=== PATIENT | female | born 1960 | race African-American/Black ===

== ENCOUNTER 2022-07-07 16:08 | Inpatient (IN) | payer MEDICARE, OTHER ==
[~2022-07-07] VITALS: Ht 154.9 cm; Wt 96.6 kg
[2022-07-07] MEDS ORDERED: ONDANSETRON 4 MG/2 ML VIAL IV ONE (16:30)
[2022-07-07] MEDS ORDERED: HYDROMORPHONE 1 MG/1 ML DISP.SYRIN IV ONE ×3 (16:30→20:45)
[2022-07-07] MEDS ORDERED: IV NORMAL SALINE 1000 ML BAG IV ONE (16:30)
[2022-07-07 17:14] LABS: HEMATOCRIT 31.2 % (31.2-41.9); MEAN CORPUSCULAR HEMOGLOBIN 23.8 uug (24.7-32.8); MEAN CORPUSCULAR VOLUME 76.6 fL (75.5-95.3); PLATELET COUNT (AUTO) 274 K/uL (179-408)
[2022-07-07] MEDS ORDERED: ONDANSETRON 4 MG/2 ML VIAL ONE (17:16)
[2022-07-07] MEDS ORDERED: HYDROMORPHONE 1 MG/1 ML DISP.SYRIN ONE ×2 (17:16→18:55)
[2022-07-07 17:21] LABS: *BILIRUBIN,URIN NEGATIVE (NEGATIVE); *BLOOD, URINE NEGATIVE (NEGATIVE); *CLARITY,URINE TURBID (CLEAR); *COLOR,URINE YELLOW (YELLOW); *KETONES,URINE NEGATIVE (NEGATIVE); LEUKOCYTE ESTERASE ,URINE 2+ (NEGATIVE); NITRITE, URINE POSITIVE (NEGATIVE); PH,URINE 6.5 (5.0-8.0); UGLUCOSE NEGATIVE (NEGATIVE)
[2022-07-07 17:22] LABS: CREATININE 0.8 mg/dL (0.6-1.3); POTASSIUM 3.8 mmol/L (3.5-5.1)
[2022-07-07 17:28] LABS: BILIRUBIN,DIRECT 0.1 mg/dL (0.0-0.2); BILIRUBIN,TOTAL 0.4 mg/dL (0.2-1.0); TOTAL PROTEIN, SERUM 7.9 g/dL (6.4-8.2)
[2022-07-07] MEDS ORDERED: SWABABLE VALVE TRANSFER SET EA MC ONE (17:33)
[2022-07-07] MEDS ORDERED: IV NORMAL SALINE 250 ML IV ONE (17:33)
[2022-07-07] MEDS ORDERED: IOHEXOL 350 100 ML INFUS..BTL ONE (17:33)
[2022-07-07 17:36] LABS: RBC,URINE 0-3 /HPF (0-3)
[2022-07-07 17:37] LABS: BACTERIA,URINE MANY /HPF (NONE SEEN); SQUAMOUS EPITHELIAL CELL,UR MODERATE /HPF (NONE SEEN); WBC,URINE TNTC /HPF (0-3)
--- NOTE | 2022-07-07 18:19 | NUR ---
PT SEEN AND EVALUATED BY EMMA DEGROOT PLACED AND MEDICATED PER MD ORDER.
--- NOTE | 2022-07-07 18:19 | NUR ---
CONSENT FOR CT OF ABD AND PELVIS SIGNED BY PATIENT. TO RADIOLOGY [facility]IA [facility].
[2022-07-07] MEDS ORDERED: CEFTRIAXONE /D5W 50ML IVPB **ER PYXIS IV ONE (18:54)
[2022-07-07] MEDS ORDERED: CEFTRIAXONE 1 G in IV DEXTROSE 5% 50 ML IV ONE (19:00)
--- NOTE | 2022-07-07 19:47 | NUR ---
Dr Diane spoke with Dr Mayorga who accept patient.
[2022-07-07] MEDS ORDERED: HYDROMORPHONE 2 MG/1 ML DISP.SYRIN ONE (20:39)
[2022-07-07] MEDS: CHOLECALCIFEROL 1,000 UNIT TABLET PO SCH (21:10)
--- NOTE | 2022-07-07 21:18 | NUR ---
Pt. admitted to [facility] unit Room 307, under care of Dr. Jacobsen. Report given to CONRADO Merino. Belongs List completed.
[2022-07-07] MEDS ORDERED: hydrALAZINE HCL 20 MG/1 ML VIAL IV PRN (23:15)
[2022-07-07] MEDS ORDERED: ACETAMINOPHEN 325 MG TABLET PO PRN (23:15)
[2022-07-07] MEDS ORDERED: MORPHINE SULFATE 2 MG/1 ML DISP.SYRIN IV PRN (23:15)
[2022-07-08] MEDS: TRAZODONE 100 MG TABLET PO SCH ×2 (00:44→20:55)
[2022-07-08] MEDS: ZOLPIDEM 5 MG TABLET PO SCH ×2 (00:44→20:55)
[2022-07-08] MEDS: HYDROMORPHONE 1 MG/1 ML DISP.SYRIN SQ PRN ×2 (01:02→09:25)
[2022-07-08] MEDS: ONDANSETRON 4 MG/2 ML VIAL IV PRN ×3 (02:48→09:25)
[2022-07-08] MEDS ORDERED: LACTULOSE 20 G/30 ML LIQUID UDC PO PRN (03:45)
[2022-07-08] MEDS ORDERED: FLEET ENEMA 133 ML BOTTLE RC ONE (03:45)
[2022-07-08 04:00] VITALS: BP 142/81
--- NOTE | 2022-07-08 07:44 | NUR ---
rECEIVED POT FROM ER C/O BACK STATES'I CAN/T HAVE A LITTLE DILAUDID BECAUSE IT DOESN'T WORK ON SMALL AMT DR WHALEY ORDERD .5MG DILAUDID AND WON'T GIVE ANY HIGHER DOSAGE PT C/O ABOUT THE NURSES STATES' THOSE NURSE WONT HELP ME THEY JUST SIT AT THE NURSING STATION AND TALKING TO PATIENT AND OTHER PEOPLE AND WONT COME AND HELP ME PT TALKED TO [place] AND SAID THEY HELP BECAUSE I AM BLACK. [place] INFORMED PT THERE OTHER BLACK SUPERVISORS SHE LISTENED TO THE PT EXPRESS HER FEELING PT TOLD HER IT IS RESOLVED NOW. PT HAD EMESIS TWICE AND I GAVE HER ZOFRAN AND GAVE LACTULOSE ORDERED NO SIGNS OF DISTRESS NOTED. WILL ENDORSE TO AM NURSE.
[2022-07-08 08:42] LABS: HEMATOCRIT 31.6 % (31.2-41.9); MEAN CORPUSCULAR HEMOGLOBIN 24.2 uug (24.7-32.8); MEAN CORPUSCULAR VOLUME 78.3 fL (75.5-95.3); PLATELET COUNT (AUTO) 209 K/uL (179-408)
[2022-07-08] MEDS ORDERED: CEFTRIAXONE 2 G VIAL IV SCH (09:00)
[2022-07-08] MEDS ORDERED: CEFTRIAXONE 2 G in IV DEXTROSE 5% 100 ML IV SCH ×2 (09:00→18:00)
[2022-07-08] MEDS: HEPARIN SODIUM,PORCINE 5,000 UNITS/ML VIAL SQ SCH ×2 (09:14→21:02)
[2022-07-08] MEDS: CHOLECALCIFEROL 1,000 UNIT TABLET PO SCH (09:52)
[2022-07-08 12:00] VITALS: BP 105/48
[2022-07-08] MEDS ORDERED: CARI350T27 PO (14:42)
[2022-07-08] MEDS ORDERED: PREG75CA PO (14:42)
[2022-07-08] MEDS ORDERED: TIOT4MIS2 IH (14:42)
[2022-07-08] MEDS ORDERED: PANT40TA2 PO (14:42)
[2022-07-08] MEDS ORDERED: OXYC5TAB3 PO (14:42)
[2022-07-08] MEDS ORDERED: ZOLP10TA2 PO (14:42)
[2022-07-08] MEDS ORDERED: METO-356 PO (14:42)
[2022-07-08] MEDS ORDERED: TRAZ-257 PO (14:44)
[2022-07-08] MEDS ORDERED: MIRA25TA PO (14:44)
[2022-07-08] MEDS ORDERED: OXYC15TA2 PO (14:49)
[2022-07-08] MEDS ORDERED: AMIT50TA3 PO (14:56)
[2022-07-08 16:00] VITALS: BP 147/78
[2022-07-08] MEDS: HYDROMORPHONE 1 MG/1 ML DISP.SYRIN IV PRN ×2 (16:10→16:58)
--- NOTE | 2022-07-08 17:31 | NUR ---
Medicated patient PRN with .5MG DILAUDID as ordered for her general body pain non-relieved by NPI provided. Medication effective upon pain evaluation. Repositioned patient Q2HRS to promote comfort and facilitate pressure relief. Patient with poor appetite, supplements offered as tolerated. Medicated patient PRN with zofran for her complaints of nausea and effective, no vomiting noted. Patient allowed partial blood draw this and refused some blood draw as well. making rounds this am and informed of blood draw refusal.
--- NOTE | 2022-07-08 19:35 | NUR ---
Patient still complain of 8/10 abdominal/back pain notify Dr Valencia with order of Percocet 5mg q 6 prn, clarify with patient that she ok with percocet cause she has allergy to morphine, verify with pharmacist, and said if patient is ok with it, it ok to give.
[2022-07-08] MEDS: OXYCODONE/APAP 5-325 MG TABLET PO PRN (19:52)
--- NOTE | 2022-07-08 19:55 | NUR ---
Patient alert oriented, assisted with toileting, for bowel and bladder eliminations, noted has anxiety mb crying, restless in bed, requesting for more pain meds, states that she pain on lower back radiates to the front, encouraged patient to take the Percocet tab now so it will work on her pain, however, AM RN gave Dilaudid iv push two hours ago, per assessment it's unclear if patient having anxiety vs pain, attend all patient needs as much as possible, cont to monitor.
[2022-07-08 20:00] VITALS: BP 144/119
--- NOTE | 2022-07-09 01:00 | NUR ---
Patient asleep since 2300, no complain of pain at this time, continue to monitor.
[2022-07-09] MEDS: OXYCODONE/APAP 5-325 MG TABLET PO PRN ×2 (03:19→09:26)
--- NOTE | 2022-07-09 03:29 | NUR ---
Patient awake complain of 8/10 pain from back thru the front, given percocet 5mg po , BP stable, cont to monitor. Patient goes to the bathroom for bladder elimination with min assist,cont to monitor.
[2022-07-09 04:00] VITALS: BP 131/67
[2022-07-09] MEDS: HEPARIN SODIUM,PORCINE 5,000 UNITS/ML VIAL SQ SCH (08:34)
[2022-07-09] MEDS ORDERED: IV NS 1000 ML 1,000 ML IV PRN (09:30)
[2022-07-09] MEDS ORDERED: CIPR-262 PO (09:47)
[2022-07-09] MEDS ORDERED: BUTALB/ACETAMINOPHEN/CAFFEINE CAPSULE PO ONE (10:20)
--- NOTE | 2022-07-09 10:30 | NUR ---
Patient complained of pain in her back and asked for pain medication, she was given percocept right away and fell asleep.
[2022-07-09] MEDS ORDERED: ENSURE ENLIVE (VAN) 240 ML LIQUID PO SCH (13:00)
--- NOTE | 2022-07-09 13:25 | NUR ---
Patient said she feels better and wanted to go home. She is stable at discharge and got picked up by her daughter.
== END 2022-07-09 13:00 | disposition home or self-care (01) | DRG 690 ==
LOC: ER 16:08 → MEDSURG3 19:50
PROVIDERS: ADMIT Internal Medicine; ATTEND Internal Medicine
DX: N13.6 Pyonephrosis (principal); D64.9 Anemia, unspecified; G47.00 Insomnia, unspecified; I10 Essential (primary) hypertension; N12 Tubulo-interstitial nephritis, not specified as acute or chronic; B96.20 Unspecified Escherichia coli [E. coli] as the cause of diseases classified elsewhere; Z98.1 Arthrodesis status; Z20.822 Contact with and (suspected) exposure to COVID-19
CPT/HCPCS: 36415; 83690; 85025; 87077; 87086; A4663; G0378; J0696; J1170; J1644; J2405; J7040; Q9967